=== PATIENT | female | born 1970 | race Caucasian/White ===

== ENCOUNTER 2020-11-13 07:33 | Observation (INO) | payer MEDICAID ==
[~2020-11-13] VITALS: Ht 165.1 cm; Wt 109.1 kg
--- NOTE | ~2020-11-13 | EC ---
PATIENT:MARIELOS MAYA DATE OF SERVICE: 11/13/20 SEX: F MEDICAL RECORD: [id number] DATE OF : 74 [facility] AGE OF PATIENT: 50 ADMISSION DATE: 11/13/20 REFERRING PHYSICIAN: INTERPRETING PHYSICIAN: EDUARDO YUNG MD ECHOCARDIOGRAM REPORT ECHO CHARGES 4 ECHO COMPLETE Date: 11/13/20 CLINICAL DIAGNOSIS: HTN ECHOCARDIOGRAPHIC MEASUREMENTS (adult normal given) AC root (d.<3.7cm) 2.5 cm LV Septum d (<1.2 cm> 1.2 cm Valve Excursion 1.0 cm LV Septum (systole) 1.4 cm Left Atria (s.<4.0cm> 4.7 cm LVPW d(<1.2cm) 1.1 cm RV (d.<2.3cm) 4.1 cm LVPW (sytole) 1.4 cm LV diastole(<5.6CM) 4.1 cm MV E-F(>70mm/sec) cm LV systole 2.9 cm LVOT Diameter 1.7 cm MV exc.(>10mm) 2.0 cm Est.ejection fraction (50-75%) % DOPPLER: LVIT cm/sec A 77 cm/sec E 89 cm/sec LA cm/sec RVSP 19 mmHg LVOT 121 cm/sec AOP1/2T m/s Asc. Ao 141 cm/sec RVOT 52 cm/sec RA cm/sec PA 47 cm/sec AV Gradient Peak 8.0 mmHg AV Mean 4.5 mmHg AV Area 1.8 cm MV Gradient Peak 5.0 mmHg MV Mean 3.0 mmHg MV Area cm COMMENTS: Welcome Wagon Hostess: Tate MORENO Signals Intelligence Superintendent: 2 Dr. Adrian TAPE# Pericardial Effusion N DATE OF SERVICE: CLINICAL INDICATION: Hypertension. INTERPRETATION: Technically difficult study. Overall, normal left ventricular chamber size and contractile function with ejection fraction of 55%. Mild left atrial chamber dilatation. Right atrium and right ventricular chamber not well visualized, but appears normal. Aortic valve not well visualized. No aortic stenosis/regurgitation noted. Mitral valve appears normal. No mitral regurgitation. Tricuspid valve not well visualized, but appears normal. Trace ECHOCARDIOGRAM REPORT [id number] MARIELOS MAYA tricuspid regurgitation. Pulmonic valve is not well visualized. No pulmonary insufficiency noted. No pericardial effusion noted. IMPRESSION: Technically difficult study, overall normal left ventricular chamber size and contractile function with an ejection fraction of 55%. TRANSINT:[id number] Voice Confirmation ID: [id number] DOCUMENT ID: [id number] EDUARDO YUNG MD CC: [id number] DICTATION DATE: 11/13/20 1610 SOFT SUGAR CUTTER: 11/13/202116 ADM IN [facility] [address] [id number]
[~2020-11-13 07:33] MED LIST: BAYER CHEWABLE81 MG PO; COMBIVENT RESPIM4 GM INH; CYCLOBENZAPRINE10 MG PO; DECADRON4 MG PO; EFFEXOR75 MG PO; FLUTICASONE PRO16 GM NASAL; GLUCOPHAGE1000 MG PO; GLYBURIDE5 M1 PO; IBUPROFEN600 MG PO; ISOSORBIDE DINI20 MG PO; LOMOTIL 2.5-0.1 EAC1 PO; MINIPRESS2 MG PO; MOBIC7.5 MG PO; NEURONTIN600 MG PO; PROAIR HFA8.5 G1 INH; ROPINIROLE HCL1 MG PO; SEROQUEL200 MG PO; SYMBICORT 80-10.2 GM INH; TOPROL XL25 MG PO; TRAZODONE HCL150 MG PO; TRIAMTERENE-HC1 EAC6 PO; ZOCOR40 MG PO; ZOFRAN ODT4 MG/UDTAB PO
[2020-11-13 08:05] LABS: BASOPHILS 0.3 % (0-2); CALC OSMOLALITY 284 mosm/kg (275-300); CALCIUM 9.6 mg/dL (8.5-10.1); CARBON DIOXIDE 27.9 mmol/L (21.0-32.0); CHLORIDE - SERUM 101 mmol/L (98-107); CREATININE - SERUM 1.1 mg/dL (0.6-1.3); EOSINOPHILS 0.5 % (0-7); GLUCOSE 152 mg/dL (74-106); HEMATOCRIT 36.2 % (36.0-48.0); HEMOGLOBIN 11.3 g/dL (12-16); IMMATURE GRANULOCYTES 0.5 % (0-5); LYMPHOCYTE ABS# 2.02 10x3/uL (1.18-3.74); LYMPHOCYTES 19.6 % (15-50); MCH 26.9 pg (26.0-34.0); MCHC 31.2 g/dL (31.0-37.0); MCV 86.2 fL (80.0-100.0); MEAN PLATELET VOLUME 9.5 fL (7.4-10.4); MONOCYTES 6.6 % (2-11); NEUTROPHIL ABS# 7.49 10x3/uL (1.56-6.13); NEUTROPHILS 72.5 % (40-80); PLATELET COUNT 342 10x3/uL (130-400); POTASSIUM - SERUM 3.9 mmol/L (3.5-5.1); RDW 18.2 % (11.5-14.5); SODIUM 139 mmol/L (136-145); UREA NITROGEN 25 mg/dL (7-18); WBC 10.3 10x3/uL (4.8-10.8); eGFR NON AFRICAN AMERICAN 56 mL/min (90-120)
[2020-11-13 08:21] LABS: INR 0.96 (0.85-1.17); PROTIME 11.8 SECONDS (11.6-15.0)
[2020-11-13 08:22] LABS: ALBUMIN 3.6 g/dL (3.4-5.0); ALKALINE PHOSPHATASE 55 U/L (30-120); ALT (SGPT) 35 U/L (10-68); APTT 25.6 SECONDS (22.8-39.4); BILIRUBIN - TOTAL 0.17 mg/dL (0.2-1.3); CKMB 0.8 U/L (0.0-3.6); CREATINE KINASE 99 UL (21-215); MAGNESIUM - SERUM 1.5 mg/dL (1.8-2.4); PROTEIN - SERUM 7.3 g/dL (6.4-8.2)
[2020-11-13 08:23] LABS: TROPONIN-I < 0.017 ng/mL (0.000-0.060)
[2020-11-13 09:07] VITALS: BP 143/86
--- NOTE | 2020-11-13 10:30 | NUR ---
RECEIVED PT TO 2109 VIA WHEELCHAIR FROM ER, PT ALERT AND ORIENTED, DENIES PAIN AT THIS TIME, TELEMETRY PLACED ON PT, HR 68, BP 139/101, O2 SAT 97% ON ROOM AIR, AT BEDSIDE, CALL LIGHT IN REACH, WILL MONITOR
[2020-11-13 11:15] VITALS: BP 139/101; Ht 165.1 cm; Wt 109.1 kg
[2020-11-13 11:46] VITALS: BP 139/101
[2020-11-13] MEDS ORDERED: HYDROCODON-ACE1 EAC7 (11:56)
--- NOTE | 2020-11-13 14:30 | NUR ---
PT SITTING ON SIDE OF BED WITH AT BEDSIDE, CALL LIGHT IN REACH, WILL MONITOR
[2020-11-13 14:45] LABS: CKMB 0.9 U/L (0.0-3.6); CREATINE KINASE 95 UL (21-215); TROPONIN-I < 0.017 ng/mL (0.000-0.060)
[2020-11-13 16:25] VITALS: BP 144/77
--- NOTE | 2020-11-13 17:31 | NUR ---
SITTING UP IN BED EATING DINNER, DENIES PAIN, CALL LIGHT IN REACH, WILL MONITOR
[2020-11-13 19:25] LABS: CKMB 1.2 U/L (0.0-3.6); CREATINE KINASE 92 UL (21-215)
[2020-11-13 19:29] LABS: TROPONIN-I < 0.017 ng/mL (0.000-0.060)
--- NOTE | 2020-11-13 19:45 | NUR ---
REPORT RECEIVED, PT A&O, FAMILY AT BEDSIDE. NO S/S OF DISTRESS OBSERVED. RR EVEN & UNLABORED ON RA. BED LOCKED AND LOWERED, CL IN REACH. ASSESSMENT COMPLETED AT THIS TIME. WILL CONT POC.
[2020-11-13 21:26] VITALS: BP 146/86
[2020-11-14] VITALS: BP 104/66
--- NOTE | 2020-11-14 01:46 | NUR ---
AUDIBLE WHEEZES NOTED WITHOUT AUSCULTATION. RT ASSESSED PT. SPOKE WITH NGHIA SAUER APN, ORDERS FOR UPDRAFT RECEIVED. PT RECEIVED UPDRAFT. SOME WHEEZING STILL NOTED. PT TOLERATED MEDICATION ADMINISTRATION WELL.
[2020-11-14 03:17] LABS: BASOPHILS 0.4 % (0-2); EOSINOPHILS 1.7 % (0-7); HEMATOCRIT 33.5 % (36.0-48.0); HEMOGLOBIN 10.2 g/dL (12-16); IMMATURE GRANULOCYTES 0.1 % (0-5); LYMPHOCYTE ABS# 2.09 10x3/uL (1.18-3.74); LYMPHOCYTES 29.3 % (15-50); MCH 26.3 pg (26.0-34.0); MCHC 30.4 g/dL (31.0-37.0); MCV 86.3 fL (80.0-100.0); MEAN PLATELET VOLUME 9.4 fL (7.4-10.4); MONOCYTES 7.2 % (2-11); NEUTROPHIL ABS# 4.37 10x3/uL (1.56-6.13); NEUTROPHILS 61.3 % (40-80); PLATELET COUNT 312 10x3/uL (130-400); RBC 3.88 10x6/uL (4.00-5.40); RDW 18.2 % (11.5-14.5)
[2020-11-14 03:32] LABS: WBC 7.1 10x3/uL (4.8-10.8)
[2020-11-14 03:44] LABS: ALBUMIN 3.3 g/dL (3.4-5.0); ALKALINE PHOSPHATASE 47 U/L (30-120); ALT (SGPT) 32 U/L (10-68); BILIRUBIN - TOTAL 0.19 mg/dL (0.2-1.3); CALC OSMOLALITY 285 mosm/kg (275-300); CALCIUM 8.6 mg/dL (8.5-10.1); CHLORIDE - SERUM 102 mmol/L (98-107); CKMB 0.8 U/L (0.0-3.6); CREATINE KINASE 77 UL (21-215); GLUCOSE 146 mg/dL (74-106); MAGNESIUM - SERUM 1.5 mg/dL (1.8-2.4); POTASSIUM - SERUM 3.6 mmol/L (3.5-5.1); PROTEIN - SERUM 6.6 g/dL (6.4-8.2); SODIUM 140 mmol/L (136-145); UREA NITROGEN 23 mg/dL (7-18); eGFR NON AFRICAN AMERICAN 63 mL/min (90-120)
[2020-11-14 03:47] LABS: TROPONIN-I < 0.017 ng/mL (0.000-0.060)
[2020-11-14 04:00] VITALS: BP 128/70
[2020-11-14 07:00] VITALS: BP 120/67
[2020-11-14 08:24] LABS: CKMB 0.6 U/L (0.0-3.6); CREATINE KINASE 75 UL (21-215); TROPONIN-I < 0.017 ng/mL (0.000-0.060)
[2020-11-14] MEDS ORDERED: PREDNISONE10 MG PO (10:00)
--- NOTE | 2020-11-14 11:01 | NUR ---
PT BREATHING EASILY. LUNG SOUNDS CLEAR. COMPLAINS OF LEG PAIN. DENIES CHEST PAIN. RONDA ASSEMBLER DECK AND HULL CANCELED STRESS TEST AND ORDERED PT FOOD. PT UP EATING FOOD WITH EASE. NO EDEMA. INTERACTS WITH NURSE APPROPRIATELY.
--- NOTE | 2020-11-14 12:19 | NUR ---
DISCHARGE INSTRUCTIONS PROVIDED TO PATIENT AND . BOTH VERBALIZED UNDERSTANDING. PRINTED COPY GIVEN. CBG 333. GAVE 8 UNITS OF SC INSULIN. PT STATES SHE TAKES DIABETES MEDICINE AT HOME THAT SHE HAS NOT BEEN GETTING HERE BUT WILL CONTINUE TO TAKE AT HOME. SHE WANTS TO EAT BEFORE GOING OUT. SHE WILL CALL WHEN FINISHED EATING AND WILL BE TRANSPORTED TO VEHICLE VIA WHEELCHAIR.
== END 2020-11-14 12:41 | disposition home or self-care (01) ==
LOC: D.ER 07:33 → D.M2 09:43 → OBSVTIME 09:45 → D.M2 11-14 12:41
PROVIDERS: Family Medicine; ADMIT Family Medicine; ATTEND Family Medicine
DX: R07.9 Chest pain, unspecified (principal); F17.200 Nicotine dependence, unspecified, uncomplicated; E78.5 Hyperlipidemia, unspecified; E11.9 Type 2 diabetes mellitus without complications; I11.0 Hypertensive heart disease with heart failure; I50.9 Heart failure, unspecified; Z79.84 Long term (current) use of oral hypoglycemic drugs; F32.9 Major depressive disorder, single episode, unspecified

== ENCOUNTER 2020-11-17 18:50 | Emergency (ER) | payer MEDICAID ==
[~2020-11-17] VITALS: Ht 165.1 cm; Wt 118.2 kg
[~2020-11-17 18:50] MED LIST changes: +HYDROCODON-ACE1 EAC7; +PREDNISONE10 MG PO
[2020-11-17 19:05] VITALS: Ht 165.1 cm; Wt 118.2 kg
[2020-11-17 19:43] LABS: BILIRUBIN NEGATIVE (NEGATIVE); KETONE NEGATIVE (NEGATIVE); NITRITE NEGATIVE (NEGATIVE); UROBILINOGEN NORMAL mg/dL (< 2)
[2020-11-17 19:43] LABS: BASOPHILS 0.2 % (0-2); EOSINOPHILS 0.1 % (0-7); HEMATOCRIT 37.7 % (36.0-48.0); HEMOGLOBIN 11.9 g/dL (12-16); IMMATURE GRANULOCYTES 0.4 % (0-5); LYMPHOCYTE ABS# 1.32 10x3/uL (1.18-3.74); LYMPHOCYTES 11.4 % (15-50); MCHC 31.6 g/dL (31.0-37.0); MCV 85.7 fL (80.0-100.0); MEAN PLATELET VOLUME 9.6 fL (7.4-10.4); MONOCYTES 4.7 % (2-11); NEUTROPHIL ABS# 9.66 10x3/uL (1.56-6.13); NEUTROPHILS 83.2 % (40-80); RDW 17.5 % (11.5-14.5); WBC 11.6 10x3/uL (4.8-10.8)
[2020-11-17 19:44] LABS: PLATELET COUNT 418 10x3/uL (130-400)
[2020-11-17 19:46] LABS: APTT 26.9 SECONDS (22.8-39.4); INR 1.06 (0.85-1.17); PROTIME 12.8 SECONDS (11.6-15.0)
[2020-11-17 19:51] LABS: CALC OSMOLALITY 282 mosm/kg (275-300); CALCIUM 9.4 mg/dL (8.5-10.1); CARBON DIOXIDE 28.4 mmol/L (21.0-32.0); CHLORIDE - SERUM 101 mmol/L (98-107); CREATININE - SERUM 0.9 mg/dL (0.6-1.3); POTASSIUM - SERUM 4.1 mmol/L (3.5-5.1); SODIUM 138 mmol/L (136-145); UREA NITROGEN 17 mg/dL (7-18); eGFR NON AFRICAN AMERICAN 71 mL/min (90-120)
[2020-11-17 20:01] LABS: GLUCOSE 194 mg/dL (74-106)
[2020-11-17 20:02] LABS: ALBUMIN 3.8 g/dL (3.4-5.0); ALKALINE PHOSPHATASE 55 U/L (30-120); ALT (SGPT) 30 U/L (10-68); CKMB 0.6 U/L (0.0-3.6); CREATINE KINASE 64 UL (21-215); MAGNESIUM - SERUM 1.9 mg/dL (1.8-2.4); PROTEIN - SERUM 7.8 g/dL (6.4-8.2)
[2020-11-17 20:04] LABS: TROPONIN-I < 0.017 ng/mL (0.000-0.060)
[2020-11-17] MEDS ORDERED: FLUTICASONE PRO16 GM NASAL (20:06)
--- NOTE | 2020-11-17 21:40 | NUR ---
DR SCHRADER NOTIFIED AND REVIEWED PT BEHAVIOR AND ASSESSMENT RESULTS. PT IS A LOW RISK PER DR SCHRADER. DR SCHRADER STATED TO GIVE RESOURCES TO PT AT TIME OF DISCHARGE. NO FURTHER ORDERS AT THIS TIME. RESOURCES REVIEWED WITH PT AND SHE VERBALIZED UNDERSTANDING.
[2020-11-17 21:50] VITALS: BP 131/87
== END 2020-11-17 21:51 | disposition home or self-care (01) ==
LOC: D.ER 18:50
PROVIDERS: Family Medicine
DX: J30.9 Allergic rhinitis, unspecified (principal); E11.9 Type 2 diabetes mellitus without complications; I11.0 Hypertensive heart disease with heart failure; I50.9 Heart failure, unspecified; J44.9 Chronic obstructive pulmonary disease, unspecified; K21.9 Gastro-esophageal reflux disease without esophagitis; Z72.0 Tobacco use; Z79.84 Long term (current) use of oral hypoglycemic drugs; T38.0X5A Adverse effect of glucocorticoids and synthetic analogues, initial encounter

== ENCOUNTER 2020-11-18 17:31 | Emergency (ER) | payer MEDICAID ==
[~2020-11-18] VITALS: Ht 165.1 cm; Wt 127.3 kg
[2020-11-18 17:33] VITALS: Ht 165.1 cm; Wt 127.3 kg
[2020-11-18 23:38] VITALS: BP 113/62
== END 2020-11-18 22:16 | disposition home or self-care (01) ==
LOC: D.ER 17:31
DX: R53.81 Other malaise (principal); R53.83 Other fatigue; E11.9 Type 2 diabetes mellitus without complications; I11.0 Hypertensive heart disease with heart failure; I50.9 Heart failure, unspecified; K21.9 Gastro-esophageal reflux disease without esophagitis; J44.9 Chronic obstructive pulmonary disease, unspecified; Z72.0 Tobacco use; Z79.84 Long term (current) use of oral hypoglycemic drugs; R11.2 Nausea with vomiting, unspecified